=== PATIENT | male | born 1980 | race Caucasian/White ===

== ENCOUNTER → 2024-07-08 | Outpatient (CLI) | payer BC ==
--- NOTE | 2024-07-08 09:20 | FL ---
EXAMINATION TYPE: FL barium swallow DATE OF EXAM: 07/08/2024 8:47 AM COMPARISON: None CLINICAL INDICATION:Male, 43 years old with history of R13.19 ESOPH DYSPHAGIA R09.A2 GLOBUS SENSATION ; PH, TECHNIQUE: The procedure was explained and patient history elicited. All patient questions were ans wered prior to start of procedure. Multiple spot fluoroscopic images of the esophagus were obtained a fter the oral ingestion of effervescent crystals and liquid barium as the contrast agent. Fluoroscopic time:54 sec Fluoroscopic images:93 Radiographs taken: 93 DAP: NOT reported [id number] FINDINGS: The esophagus demonstrates normal primary and secondary peristalsis. Tertiary contractions are seen w ith delayed emptying of the esophageal contents. The esophageal mucosa is smooth without evidence of focal stricture, ulceration, or abnormal outpouching. No gastroesophageal reflux disease was identif ied IMPRESSION: Esophageal dysmotility. [facility], , 07/08/2024 9:17 AM
--- NOTE | 2024-07-08 11:51 | US ---
EXAMINATION TYPE: US thyroid st tissue head/neck DATE OF EXAM: 07/08/2024 COMPARISON: NONE CLINICAL INDICATION: Male, 43 years old with history of R13.19 ESOPH DYSPHAGIA R09.A2 GLOBUS SENSATIO N; Globus sensation TECHNIQUE: Grayscale and color Doppler imaging of the thyroid gland. FINDINGS: GLAND SIZE: Right Lobe: 5.4 x 1.5 x 1.7 cm Overall Parenchyma: homogeneous Left Lobe: 4.3 x 1.6 x 1.3 cm Overall Parenchyma: homogeneous Isthmus Thickness: 0.37 cm NODULES RIGHT: # of nodules measured on right: 0 LEFT: # of nodules measured on left: 0 ISTHMUS: # of nodules measured in the isthmus: 0 Bilateral neck scanned, no evidence of lymphadenopathy. IMPRESSION: Unremarkable thyroid gland without discrete nodule. [facility], , 07/08/2024 11:48 AM
== END | disposition home or self-care (01) ==
LOC: RADUSWWP 07:35
PROVIDERS: ATTEND Student in an Organized Health Care Education/Training Program
DX: K22.4 Dyskinesia of esophagus (principal); R13.19 Other dysphagia; R09.A2 Foreign body sensation, throat
CPT/HCPCS: 74220; 76536